=== PATIENT | female | born 1970 | race Caucasian/White ===

== ENCOUNTER 2017-02-02 11:42 | Emergency (ER) | payer MEDICARE, MEDICAID ==
[2016-03-13 17:21] VITALS: BMI 47.5
[~2017-02-02 11:42] MED LIST: ACETAMINOPHEN500 M1 PO; ALBUTEROL2.5 MG/3 M UPD; BROVANA15 MCG/2 M INH; CLEOCIN HCL300 MG PO; DULERA 100 MCG8.8 GM INH; FLUTICASONE PRO16 GM NS; GABAPENTIN100 MG PO; IPRAT-ALBUT 0.5-3 ML INH; K-TAB10 MEQ PO; LAMICTAL100 MG PO; LASIX20 MG PO; LEVAQUIN750 MG PO; MEDROL DOSE PACK4 MG PO; MOTRIN800 MG PO; NAPROSYN500 MG PO; NORCO 10/325 TA1 TA1 PO; PERCOCET 10/3251 TA1 PO; PREDNISONE20 MG PO; PRILOSEC20 MG PO; PROZAC20 MG PO; REQUIP1 MG PO; REQUIP4 MG PO; ROBAXIN-750750 MG PO; SEROQUEL200 MG PO; TESSALON PERLE100 MG PO; TOFRANIL50 MG PO; XANAX2 MG PO; ZYPREXA10 MG PO
== END 2017-02-02 12:35 | disposition home or self-care (01) ==
LOC: D.ER 11:42
DX: L02.31 Cutaneous abscess of buttock (principal); F41.9 Anxiety disorder, unspecified; F31.9 Bipolar disorder, unspecified; J44.9 Chronic obstructive pulmonary disease, unspecified; Z76.5 Malingerer [conscious simulation]; F17.200 Nicotine dependence, unspecified, uncomplicated

== ENCOUNTER 2017-02-05 09:04 | Emergency (ER) | payer MEDICARE, MEDICAID ==
[2016-03-13 17:21] VITALS: BMI 47.5
== END 2017-02-05 11:12 | disposition home or self-care (01) ==
LOC: D.ER 09:04
DX: L02.31 Cutaneous abscess of buttock (principal); F41.9 Anxiety disorder, unspecified; F31.9 Bipolar disorder, unspecified; J44.9 Chronic obstructive pulmonary disease, unspecified; Z76.5 Malingerer [conscious simulation]; F17.200 Nicotine dependence, unspecified, uncomplicated

== ENCOUNTER 2017-04-18 10:00 | Emergency (ER) | payer MEDICARE, MEDICAID ==
[2016-03-13 17:21] VITALS: BMI 47.5
[2017-04-18 11:57] LABS: BASOPHILS 0.4 % (0-2); EOSINOPHILS 5.9 % (0-7); HEMATOCRIT 33.9 % (36.0-48.0); HEMOGLOBIN 10.8 g/dL (12-16); IMMATURE GRANULOCYTES 0.3 % (0-5); LYMPHOCYTES 26.5 % (15-50); MCHC 31.9 g/dL (31.0-37.0); MCV 84.8 fL (80.0-100.0); MEAN PLATELET VOLUME 9.6 fL (7.4-10.4); MONOCYTES 10.4 % (2-11); NEUTROPHILS 56.5 % (40-80); PLATELET COUNT 228 10x3/uL (130-400); RDW 17.2 % (11.5-14.5); WBC 6.9 10x3/uL (4.8-10.8)
[2017-04-18 12:14] LABS: ALBUMIN 3.3 g/dL (3.4-5.0); ANION GAP 10.2 mmol/L (8-16); BILIRUBIN - TOTAL 0.48 mg/dL (0.2-1.3); CALCIUM 8.8 mg/dL (8.5-10.1); CARBON DIOXIDE 30.3 mmol/L (21.0-32.0); POTASSIUM - SERUM 4.5 mmol/L (3.5-5.1); PROTEIN - SERUM 6.6 g/dL (6.4-8.2)
[2017-04-18 12:35] LABS: APPEARANCE CLEAR (CLEAR); BILIRUBIN NEGATIVE (NEGATIVE); COLOR YELLOW (YELLOW); GLUCOSE NEGATIVE (NEGATIVE); KETONE NEGATIVE (NEGATIVE); LEUKOCYTE ESTERASE TRACE (NEGATIVE); NITRITE NEGATIVE (NEGATIVE); PROTEIN NEGATIVE (NEGATIVE); UROBILINOGEN NORMAL (NORMAL)
[2017-04-18 12:36] LABS: BACTERIA MANY /hpf (NONE SEEN); EPITHELIAL CELLS 0-5 /hpf (0-5); WHITE CELLS - URINE 0-5 /hpf (0-5)
== END 2017-04-18 14:40 | disposition home or self-care (01) ==
LOC: D.ER 10:00
PROVIDERS: Emergency Medicine
DX: R60.0 Localized edema (principal); J44.1 Chronic obstructive pulmonary disease with (acute) exacerbation; F41.9 Anxiety disorder, unspecified; F32.9 Major depressive disorder, single episode, unspecified

== ENCOUNTER 2019-03-10 17:12 | Emergency (ER) | payer OTHER, MEDICAID ==
[~2019-03-10] VITALS: Ht 165.1 cm; Wt 107.5 kg
[2019-03-10 17:19] VITALS: Ht 165.1 cm; Wt 107.5 kg
[2019-03-10] MEDS ORDERED: TORADOL10 MG PO (21:37)
[2019-03-10 21:54] VITALS: BP 163/98
== END 2019-03-10 21:54 | disposition home or self-care (01) ==
LOC: D.ER 17:12
DX: S82.002A Unspecified fracture of left patella, initial encounter for closed fracture (principal); W18.31XA Fall on same level due to stepping on an object, initial encounter; Y93.89 Activity, other specified; Y92.89 Other specified places as the place of occurrence of the external cause; M54.16 Radiculopathy, lumbar region